=== PATIENT | male | born 1990 | race Caucasian/White ===

== ENCOUNTER 2017-10-18 14:26 | Emergency (ER) | payer OTHER ==
[~2017-10-18] VITALS: Ht 175.3 cm; Wt 81.7 kg
[~2017-10-18 14:26] MED LIST: PREDNISONE 20 M20 M1 PO; TYLENOL325 MG PO
[2017-10-18 14:55] LABS: ABSOLUTE BASOPHILS 0.1 thou/uL (0.0-0.2); ABSOLUTE EOSINOPHILS 0.1 thou/uL (0.0-0.7); ABSOLUTE LYMPHOCYTES 1.5 thou/uL (0.8-5.3); ABSOLUTE MONOCYTES 0.9 thou/uL (0.0-1.2); ABSOLUTE NEUTROPHILS 12.7 thou/uL (1.6-8.1); BASOPHILS 0.4 %; EOSINOPHILS 0.4 %; HEMATOCRIT 46.8 % (42.0-52.0); HEMOGLOBIN 15.8 gm/dL (14.0-18.0); LYMPHOCYTES 10.1 %; MCH 31.3 pg (26.0-34.0); MCHC 33.7 g/dL (28.0-37.0); MCV 92.8 fL (80.0-100.0); MONOCYTES 6.1 %; MPV 7.6 fl. (7.2-11.1); NUCLEATED RBCS 0 /100WBC; PLATELET COUNT* 295 thou/uL (150-400); RBC 5.04 mil/uL (4.50-6.00); RDW-CV 12.5 % (10.5-14.5); WBC 15.3 thou/uL (4.0-11.0)
[2017-10-18 15:04] LABS: ANION GAP 11 mmol/L (7-16); BUN 10 mg/dL (7-18); CHLORIDE 105 mmol/L (98-107); CO2 26 mmol/L (21-32); CREATININE 0.8 mg/dL (0.6-1.3); GLUCOSE 118 mg/dL (70-99); POTASSIUM 3.3 mmol/L (3.5-5.1); SODIUM 142 mmol/L (136-145)
[2017-10-18 15:14] LABS: ALBUMIN 3.9 g/dL (3.4-5.0); ALKALINE PHOSPHATASE 56 U/L (46-116); SGOT 28 U/L (15-37); SGPT 40 U/L (30-65); TOTAL BILIRUBIN 0.4 mg/dL (<0.1-1.0); TOTAL PROTEIN 7.6 g/dL (6.4-8.2); TROPONIN-I LEVEL <0.06 ng/mL (<0.06)
[2017-10-18 16:06] LABS: URINE BILIRUBIN NEGATIVE (Negative); URINE BLOOD TRACE (Negative); URINE CLARITY CLEAR; URINE COLOR YELLOW; URINE GLUCOSE-RANDOM NEGATIVE (Negative); URINE KETONES NEGATIVE (Negative); URINE LEUKOCYTES-REFLEX NEGATIVE (Negative); URINE NITRITE-REFLEX NEGATIVE (Negative); URINE PROTEIN NEGATIVE (Negative); URINE SPECIFIC GRAVITY 1.015 (1.005-1.030); URINE UROBILINOGEN 0.2 E.U./dl (0.2-1.0)
[2017-10-18] MEDS ORDERED: ONDANSETRON HCL4 M2 PO (16:25)
[2017-10-18] MEDS ORDERED: PEPCID20 MG PO (16:25)
[2017-10-18 16:27] LABS: AMP/METHAMP Negative (Negative); BARBITURATES Negative (Negative); BENZODIAZEPINES Negative (Negative); COCAINE Negative (Negative); METHADONE Negative (Negative); OPIATES Negative (Negative); PCP Negative (Negative); THC POSITIVE (Negative)
[2017-10-18 16:40] VITALS: BP 131/74
--- NOTE | 2017-10-19 10:34 | EKG ---
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 : 1990 Requested By: Shira Warren Order Number: [id number] MD: William Wellington Measurements Intervals [place] Rate: 78 P: 60 [place]: 143 QRS: 23 QRSD: 123 T: 51 QT: 365 QTc: 416 Interpretive Statements Sinus rhythm Nonspecific intraventricular conduction delay Compared to ECG 12/20/2016 11:13:43 Intraventricular conduction delay now present Sinus arrhythmia no longer present Electronically Signed On 10-19-2017 10:34:29 JEWEL BEARING FACER by William Wellington [email or web address] <ELECTRONICALLY SIGNED> By: William Wellington MD, [facility] 10/19/17 1034 1431 1431 William Wellington MD, FACC /EPI
== END 2017-10-18 16:42 | disposition home or self-care (01) ==
LOC: M.ERS 14:26
PROVIDERS: Physician Assistant
DX: F10.10 Alcohol abuse, uncomplicated (principal); R00.2 Palpitations; R10.13 Epigastric pain; R10.33 Periumbilical pain

== ENCOUNTER 2018-08-15 15:20 | Emergency (ER) | payer OTHER ==
[~2018-08-15] VITALS: Ht 177.8 cm; Wt 81.7 kg
[~2018-08-15 15:20] MED LIST changes: +ONDANSETRON HCL4 M2 PO; +PEPCID20 MG PO
[2018-08-15 15:43] LABS: ABSOLUTE LYMPHOCYTES 1.8 thou/uL (0.8-5.3); ABSOLUTE MONOCYTES 0.4 thou/uL (0.0-1.2); ABSOLUTE NEUTROPHILS 8.8 thou/uL (1.6-8.1); BASOPHILS 0.3 %; EOSINOPHILS 0.1 %; HEMATOCRIT 47.3 % (42.0-52.0); HEMOGLOBIN 15.8 gm/dL (14.0-18.0); LYMPHOCYTES 16.6 %; MCH 30.3 pg (26.0-34.0); MCHC 33.5 g/dL (28.0-37.0); MCV 90.4 fL (80.0-100.0); MONOCYTES 3.3 %; MPV 7.4 fl. (7.2-11.1); NUCLEATED RBCS 0 /100WBC; PLATELET COUNT* 279 thou/uL (150-400); POLYS 79.7 %; RBC 5.23 mil/uL (4.50-6.00); RDW-CV 13.6 % (10.5-14.5)
[2018-08-15 15:56] LABS: ANION GAP 10 mmol/L (7-16); BUN 10 mg/dL (7-18); CALCIUM 8.5 mg/dL (8.5-10.1); CHLORIDE 105 mmol/L (98-107); CO2 26 mmol/L (21-32); CREATININE 0.9 mg/dL (0.6-1.3); GLUCOSE 93 mg/dL (70-99); POTASSIUM 3.5 mmol/L (3.5-5.1); SODIUM 141 mmol/L (136-145)
[2018-08-15 16:02] LABS: ALKALINE PHOSPHATASE 65 U/L (46-116); LIPASE 65 U/L (73-393); MAGNESIUM 1.7 mg/dL (1.8-2.4); NT-PRO BRAIN NAT PEPTIDE 31 pg/mL (<300); SGOT 24 U/L (15-37); SGPT 31 U/L (30-65); TOTAL BILIRUBIN 0.5 mg/dL (<0.1-1.0); TOTAL PROTEIN 7.6 g/dL (6.4-8.2); TROPONIN-I LEVEL <0.06 ng/mL (<0.06)
[2018-08-15] MEDS ORDERED: CARAFATE 1 GM TA1 G1 PO (18:21)
[2018-08-15 19:00] VITALS: BP 132/64
--- NOTE | 2018-08-16 13:51 | EKG ---
[place] [address] ELECTROCARDIOGRAM REPORT Name: TRISTON AQUINO [facility] [id number] Admission: 08/15/18 Attend Phys: Discharge: 08/15/18 Date of : [birth year] Report #: [id number] THIS REPORT FOR: //name// [facility] ED Test Date: 2018-08-15 Test Time: 15:20:20 Pat Name: TRISTON AQUINO Department: Room: Gender: M Client Resource Specialist: СЕРГЕЙ : 1990 Requested By: Malcom Mcclendon Order Number: [id number] MD: William Wellington Measurements Intervals [place] Rate: 84 P: 71 [place]: 140 QRS: -7 QRSD: 101 T: 45 QT: 397 QTc: 470 Interpretive Statements Sinus rhythm Borderline prolonged QT interval Compared to ECG 10/18/2017 14:31:54 no change Electronically Signed On 08-16-2018 13:50:51 JITTERBUG OPERATOR by William Wellington [email or web address] <ELECTRONICALLY SIGNED> By: William Wellington MD, [facility] 08/16/18 1350 1520 1520 William Wellington MD, FACC /EPI
--- NOTE | 2018-08-16 13:55 | EKG ---
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: СЕРГЕЙ : 1990 Requested By: Malcom Mcclendon Order Number: [id number] MD: William Wellington Measurements Intervals [place] Rate: 75 P: 72 [place]: 143 QRS: 38 QRSD: 115 T: 44 QT: 412 QTc: 461 Interpretive Statements Sinus rhythm artifact noted Nonspecific intraventricular conduction delay Electronically Signed On 08-16-2018 13:55:24 TURRET PUNCH OPERATOR by William Wellington [email or web address] <ELECTRONICALLY SIGNED> By: William Wellington MD, [facility] 08/16/18 1355 1808 1808 William Wellington MD, FACC /EPI
== END 2018-08-15 19:02 | disposition home or self-care (01) ==
LOC: M.ERS 15:20
PROVIDERS: Emergency Medicine Emergency Medical Services
DX: R07.89 Other chest pain (principal); R11.2 Nausea with vomiting, unspecified

== ENCOUNTER 2019-01-01 14:28 | Emergency (ER) | payer OTHER ==
[~2019-01-01] VITALS: Ht 175.3 cm; Wt 72.3 kg
[~2019-01-01 14:28] MED LIST changes: +CARAFATE 1 GM TA1 G1 PO
[2019-01-01] MEDS ORDERED: TOPROL XL25 MG PO (14:35)
[2019-01-01 14:45] LABS: ABSOLUTE EOSINOPHILS 0.1 thou/uL (0.0-0.7); ABSOLUTE LYMPHOCYTES 2.8 thou/uL (0.8-5.3); ABSOLUTE MONOCYTES 0.7 thou/uL (0.0-1.2); ABSOLUTE NEUTROPHILS 4.4 thou/uL (1.6-8.1); BASOPHILS 0.3 %; EOSINOPHILS 0.9 %; HEMATOCRIT 46.3 % (42.0-52.0); HEMOGLOBIN 15.9 gm/dL (14.0-18.0); LYMPHOCYTES 34.9 %; MCH 30.9 pg (26.0-34.0); MCHC 34.3 g/dL (28.0-37.0); MCV 90.2 fL (80.0-100.0); MONOCYTES 8.9 %; MPV 7.7 fl. (7.2-11.1); NUCLEATED RBCS 0 /100WBC; PLATELET COUNT* 263 thou/uL (150-400); RBC 5.13 mil/uL (4.50-6.00); RDW-CV 12.6 % (10.5-14.5)
[2019-01-01 14:48] LABS: URINE BLOOD TRACE (Negative); URINE CLARITY CLEAR; URINE COLOR DARK YELLOW; URINE GLUCOSE-RANDOM NEGATIVE (Negative); URINE KETONES 2+ (Negative); URINE LEUKOCYTES-REFLEX NEGATIVE (Negative); URINE NITRITE-REFLEX NEGATIVE (Negative); URINE PROTEIN 1+ (Negative); URINE SPECIFIC GRAVITY >= 1.030 (1.005-1.030)
[2019-01-01 14:50] LABS: ANION GAP 12 mmol/L (7-16); BUN 16 mg/dL (7-18); CALCIUM 9.3 mg/dL (8.5-10.1); CHLORIDE 102 mmol/L (98-107); CO2 28 mmol/L (21-32); GLUCOSE 101 mg/dL (70-99); POTASSIUM 3.7 mmol/L (3.5-5.1); SODIUM 142 mmol/L (136-145)
[2019-01-01 14:53] LABS: ICTOTEST (BILI CONFIRMATORY) Negative (Negative); URINE BILIRUBIN 1+ (Negative)
[2019-01-01 14:55] LABS: AMP/METHAMP Negative (Negative); BARBITURATES Negative (Negative); BENZODIAZEPINES Negative (Negative); COCAINE Negative (Negative); METHADONE Negative (Negative); OPIATES Negative (Negative); PCP Negative (Negative); THC POSITIVE (Negative)
[2019-01-01 15:03] LABS: ALBUMIN 4.4 g/dL (3.4-5.0); ALKALINE PHOSPHATASE 47 U/L (46-116); SGOT 19 U/L (15-37); SGPT 32 U/L (30-65); TOTAL BILIRUBIN 0.7 mg/dL (<0.1-1.0); TOTAL PROTEIN 7.9 g/dL (6.4-8.2); TROPONIN-I LEVEL <0.06 ng/mL (<0.06)
[2019-01-01] MEDS ORDERED: AMOXIL 875 MG875 M1 PO (15:49)
[2019-01-01 16:07] VITALS: BP 132/69
--- NOTE | 2019-01-01 17:38 | EKG ---
[place] [address] ELECTROCARDIOGRAM REPORT Name: TRISTON AQUINO [id number] Admission: 01/01/19 Attend Phys: Discharge: 01/01/19 Date of : [birth year] Report #: [id number] THIS REPORT FOR: //name// [facility] ED Test Date: 2019-01-01 Test Time: 14:29:36 Pat Name: TRISTON AQUINO Department: Room: Gender: M Yarn Dyer: СЕРГЕЙ : 1990 Requested By: Yoana York Order Number: [id number] MD: Ba Walters Measurements Intervals [place] Rate: 63 P: 47 [place]: 133 QRS: 25 QRSD: 136 T: 37 QT: 411 QTc: 421 Interpretive Statements Sinus rhythm Compared to ECG 08/15/2018 18:08:02 No significant changes Electronically Signed On 01-01-2019 17:37:57 CDT by Ba Walters [email or web address] <ELECTRONICALLY SIGNED> By: Ba Walters MD, [facility] 01/01/19 1737 1429 1429 Ba Walters MD, FACC /EPI
== END 2019-01-01 16:08 | disposition home or self-care (01) ==
LOC: M.ERS 14:28
PROVIDERS: Physician Assistant
DX: K02.9 Dental caries, unspecified (principal); R42 Dizziness and giddiness; I48.91 Unspecified atrial fibrillation; I10 Essential (primary) hypertension; Z79.899 Other long term (current) drug therapy

== ENCOUNTER 2019-12-04 14:05 | Emergency (ER) | payer OTHER ==
[~2019-12-04] VITALS: Ht 172.7 cm; Wt 70.3 kg
[~2019-12-04 14:05] MED LIST changes: +AMOXIL 875 MG875 M1 PO; +TOPROL XL25 MG PO
[2019-12-04 14:44] LABS: ABSOLUTE EOSINOPHILS 0.1 thou/uL (0.0-0.7); ABSOLUTE LYMPHOCYTES 2.9 thou/uL (0.8-5.3); ABSOLUTE MONOCYTES 0.6 thou/uL (0.0-1.2); ABSOLUTE NEUTROPHILS 4.2 thou/uL (1.6-8.1); BASOPHILS 0.5 %; EOSINOPHILS 1.3 %; HEMATOCRIT 46.4 % (42.0-52.0); HEMOGLOBIN 16.2 gm/dL (14.0-18.0); LYMPHOCYTES 36.9 %; MCH 31.9 pg (26.0-34.0); MCHC 34.9 g/dL (28.0-37.0); MCV 91.4 fL (80.0-100.0); MONOCYTES 8.1 %; NUCLEATED RBCS 0 /100WBC; PLATELET COUNT* 285 thou/uL (150-400); POLYS 53.2 %; RBC 5.08 mil/uL (4.50-6.00); RDW-CV 12.4 % (10.5-14.5); WBC 7.9 thou/uL (4.0-11.0)
[2019-12-04 14:47] LABS: URINE BILIRUBIN NEGATIVE (Negative); URINE BLOOD NEGATIVE (Negative); URINE CLARITY CLEAR; URINE COLOR YELLOW; URINE GLUCOSE-RANDOM NEGATIVE (Negative); URINE KETONES NEGATIVE (Negative); URINE LEUKOCYTES-REFLEX NEGATIVE (Negative); URINE NITRITE-REFLEX NEGATIVE (Negative); URINE PROTEIN NEGATIVE (Negative); URINE UROBILINOGEN 0.2 E.U./dl (0.2-1.0)
[2019-12-04 14:49] LABS: CALCIUM 8.8 mg/dL (8.5-10.1)
[2019-12-04 14:53] LABS: TOTAL BILIRUBIN 0.3 mg/dL (<0.1-1.0); TOTAL PROTEIN 7.6 g/dL (6.4-8.2)
[2019-12-04 15:50] VITALS: BP 125/70
== END 2019-12-04 15:50 | disposition home or self-care (01) ==
LOC: M.ERS 14:05
PROVIDERS: Emergency Medicine
DX: R10.32 Left lower quadrant pain (principal); I10 Essential (primary) hypertension; I48.91 Unspecified atrial fibrillation

== ENCOUNTER 2021-08-08 08:17 | Emergency (ER) | payer OTHER ==
[~2021-08-08] VITALS: Ht 177.8 cm; Wt 81.7 kg
[2021-08-08 08:52] LABS: URINE BLOOD TRACE (Negative); URINE CLARITY CLEAR; URINE COLOR YELLOW; URINE GLUCOSE-RANDOM NEGATIVE (Negative); URINE KETONES 2+ (Negative); URINE LEUKOCYTES-REFLEX NEGATIVE (Negative); URINE NITRITE-REFLEX NEGATIVE (Negative); URINE PROTEIN TRACE (Negative); URINE SPECIFIC GRAVITY >= 1.030 (1.005-1.030)
[2021-08-08 08:55] LABS: ABSOLUTE BASOPHILS 0.1 thou/uL (0.0-0.2); ABSOLUTE EOSINOPHILS 0.2 thou/uL (0.0-0.7); ABSOLUTE LYMPHOCYTES 3.5 thou/uL (0.8-5.3); ABSOLUTE MONOCYTES 0.7 thou/uL (0.0-1.2); ABSOLUTE NEUTROPHILS 3.7 thou/uL (1.6-8.1); BASOPHILS 0.7 %; EOSINOPHILS 2.4 %; HEMOGLOBIN 16.1 gm/dL (14.0-18.0); LYMPHOCYTES 43.6 %; MCH 31.2 pg (26.0-34.0); MCHC 33.4 g/dL (28.0-37.0); MCV 93.2 fL (80.0-100.0); MONOCYTES 8.6 %; MPV 7.8 fl. (7.2-11.1); NUCLEATED RBCS 0 /100WBC; PLATELET COUNT* 301 thou/uL (150-400); POLYS 44.7 %; RBC 5.15 mil/uL (4.50-6.00); RDW-CV 12.6 % (10.5-14.5); WBC 8.2 thou/uL (4.0-11.0)
[2021-08-08 09:09] LABS: CALCIUM 8.7 mg/dL (8.5-10.1); CREATININE 0.9 mg/dL (0.6-1.3); POTASSIUM 3.2 mmol/L (3.5-5.1); URINE BILIRUBIN 1+ (Negative)
[2021-08-08 09:10] LABS: BACTERIA-REFLEX None Seen /HPF (None Seen); CASTS None Seen /LPF (None Seen); CRYSTALS None Seen /LPF (None Seen); ICTOTEST (BILI CONFIRMATORY) Positive (Negative); SQUAMOUS 4-10 Moderate /LPF (0-3); URINE RBC 0-2 Rare /HPF (0-2); URINE WBC-REFLEX None Seen /HPF (0-5)
[2021-08-08 09:14] LABS: ALBUMIN 3.8 g/dL (3.4-5.0); TOTAL BILIRUBIN 0.9 mg/dL (<0.1-1.0); TOTAL PROTEIN 7.5 g/dL (6.4-8.2)
[2021-08-08] MEDS ORDERED: PROTONIX40 M4 PO (10:18)
[2021-08-08] MEDS ORDERED: ZOFRAN ODT4 MG DISSOLVE (10:18)
[2021-08-08 10:25] VITALS: BP 131/71
--- NOTE | 2021-08-08 14:40 | EKG ---
[place] [address] ELECTROCARDIOGRAM REPORT Name: TRISTON AQUINO Room: [facility]#: [id number] Admission: 08/08/21 Attend Phys: Discharge: 08/08/21 Date of : [birth year] Date of Service: 08/08/21 0833 Report #: [id number] THIS REPORT FOR: //name// [facility] ED Test Date: 2021-08-08 Test Time: 08:33:56 Pat Name: TRISTON AQUINO Department: Room: Gender: Epoxy Specialist: [facility] : 1990 Requested By: Santana Ruelas Order Number: [id number] MD: William Wellington Measurements Intervals [place] Rate: 65 P: 65 [place]: 144 QRS: 26 QRSD: 114 T: 40 QT: 417 QTc: 434 Interpretive Statements Sinus rhythm Borderline intraventricular conduction delay Compared to ECG 01/01/2019 14:29:36 No significant changes Electronically Signed On 08-08-2021 14:40:06 COLLABORATIVE TEACHER by William Wellington [email or web address] <ELECTRONICALLY SIGNED> By: William Wellington MD, [facility] 08/08/21 1440 0833 0833 William Wellington MD, [facility] /EPI
== END 2021-08-08 10:28 | disposition home or self-care (01) ==
LOC: M.ERS 08:17
PROVIDERS: Family Medicine
DX: R11.2 Nausea with vomiting, unspecified (principal); Z20.822 Contact with and (suspected) exposure to COVID-19; I10 Essential (primary) hypertension